=== PATIENT | male | born 1995 | race Caucasian/White ===

== ENCOUNTER 2019-08-03 09:35 | Emergency (ER) | payer OTHER ==
[2019-08-03 09:48] VITALS: BP 123/77; PULSE 89; TEMP 98.3; BMI 66.6
--- NOTE | 2019-08-03 10:34 | PDOC ---
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 (--friend translated) - History of Present Illness Pain Location: reports: lower extremity (R knee pain) Method of Injury: Yes: fall Past History - Travel Traveled outside of the country in the last 30 days: No Close contact w/someone who was outside of country & ill: No - Past Medical History Allergies/Adverse Reactions: Allergies Allergy/AdvReac Type Severity Reaction Status Date / Time No Known Allergies Allergy Verified 08/03/19 09:45 Home Medications: Ambulatory Orders NK [No Known Home Medication] 08/03/19 COPD: No - Immunization History Immunization Up to Date: No - Psycho Social/Smoking Cessation Hx Smoking History: Current every day smoker Have you smoked in the past 12 months: Yes Number of Cigarettes Smoked Daily: 1 Information on smoking cessation initiated: Yes Hx Alcohol Use: Yes Drug/Substance Use Hx: No Review of Systems - Review of Systems Constitutional: No: Chills, Fever Musculoskeletal: Yes: Joint Pain (R knee ), Joint Swelling. No: Back Pain Neurological: No: Headache, Weakness, Dizziness *Physical Exam - Vital Signs Last Vital Signs Temp Pulse Resp BP Pulse Ox 98.3 F 89 18 123/77 100 08/03/19 09:35 08/03/19 09:35 08/03/19 09:35 08/03/19 09:35 08/03/19 09:35 - Physical Exam General Appearance: Yes: Nourished Respiratory/Chest: positive: Normal Breath Sounds Cardiovascular: positive: Regular Rhythm, Regular Rate, S1, S2 Extremity: positive: Tender (R knee pain and swelling), Swelling (R knee) Neurologic: positive: marble finisher II-XII NML intact, Fully Oriented, Alert, Normal Mood/ Affect, Normal Response, Motor Strength 5/5 ED Treatment Course - RADIOLOGY Radiology Studies Ordered: Category Date Time Status KNEE 3 POS-LEFT [RAD] Stat Radiology 08/03/19 09:54 Completed Medical Decision Making - Medical Decision Making 08/03/19 10:32 23 years old male presents with right knee pain after falling on his knee an hour ago while playing soccer Patient denies any LOC or head trauma. He is on it he is unable to bear weight on the knee. There is some obvious swelling noted anterior knee, patient is unable to flex knee due to pain, his distal pulses intact. He is currently sitting on a wheelchair right now. X-rays revealing the patella fracture, Ortho page, disposition pending 08/03/19 10:[address] Newman who recommends patient can be placed on the knee immobilizer crutches provided He can follow-up in his office at 8 AM tomorrow Offered pain control patient is refusing 08/03/19 11:45 Discharge - Discharge Information Problems reviewed: Yes Clinical Impression/Diagnosis: Patella fracture Qualifiers: Encounter type: initial encounter Fracture type: closed Fracture morphology: other fracture Laterality: right Qualified Code(s): S82.091A - Other fracture of right patella, initial encounter for closed fracture Condition: Stable Disposition: HOME - Admission No - Additional Discharge Information Prescription Drug Monitoring Program (I-STOP) results: I-STOP not reviewed - Follow up/Referral Referrals: Kun Newman MD [Staff Physician] - (You have a appoinment tomorrow at 8am The address is [address] [place] [address] ) - Patient Discharge Instructions Patient Printed Discharge Instructions: Patella Fracture - Post Discharge Activity
== END 2019-08-03 11:58 | disposition home or self-care (01) ==
LOC: JER 09:35
PROC: 2W3QXYZ Immobilization of Right Lower Leg using Other Device (ICD-10-PCS; principal; 2019-08-03)
DX: S82.091A Other fracture of right patella, initial encounter for closed fracture (principal); W18.39XA Other fall on same level, initial encounter; Y93.66 Activity, soccer; Y92.322 Soccer field as the place of occurrence of the external cause; Y99.8 Other external cause status
CPT/HCPCS: 73562-TC-LT-FY; 99281-25

== ENCOUNTER 2019-08-13 06:13 | Day surgery (SDC) | payer OTHER ==
[2019-08-11 11:47] VITALS: BMI 31.8
[2019-08-13] MEDS ORDERED: ceFAZolin SODIUM 1 GM VIAL ONE (07:04)
[2019-08-13] MEDS ORDERED: SODIUM CHLORIDE 0.9% P/F 10 ML VIAL IJ ONE ×2 (07:04→07:21)
[2019-08-13] MEDS ORDERED: MIDAZOLAM HCL 2 MG/2 ML SINGLE DOSE VIAL ONE ×2 (07:04→07:20)
[2019-08-13] MEDS ORDERED: PROPOFOL 20 ML ONE ×2 (07:04)
[2019-08-13] MEDS ORDERED: DEXAMETHASONE SOD PHOSPHATE 4 MG/1 ML VIAL ONE (07:04)
[2019-08-13] MEDS ORDERED: DEXAMETHASONE SOD PHOSPHATE/PF 10 MG/ML SDV ONE (07:20)
[2019-08-13] MEDS ORDERED: BUPIVACAINE HCL/PF 0.5% (5 MG/ML) 30 ML VIAL IJ ONE (07:21)
--- NOTE | 2019-08-13 08:03 | OP ---
Operative Note - Note: Operative Date: 08/13/19 Pre-Operative Diagnosis: Left patellar fracture Operation: Left patella ORIF Post-Operative Diagnosis: Same as Pre-op Surgeon: Kun Newman Supervisor Sunglasses: Farzana Rangel Anesthesia: General Operative Report Dictated: Yes
[2019-08-13] MEDS ORDERED: KETOROLAC TROMETHAMINE 30 MG/1 ML VIAL ONE (08:40)
[2019-08-13] MEDS ORDERED: ONDANSETRON 4 MG/2 ML VIAL ONE ×2 (08:40→10:53)
[2019-08-13] MEDS ORDERED: ACETAMINOPHEN INJECTION 100 ML IVPB ONE (10:10)
[2019-08-13] MEDS ORDERED: ONDANSETRON 4 MG/2 ML VIAL IVPUSH PRN (10:13)
[2019-08-13] MEDS ORDERED: oxyCODONE HCL 5 MG TABLET PO PRN ×2 (10:13)
[2019-08-13] MEDS ORDERED: LACTATED RINGERS SOLUTION 1,000 ML IV SCH (10:15)
[2019-08-13] MEDS ORDERED: HYDROmorphone HCl 2 MG/ML VIAL IVPUSH PRN (10:15)
[2019-08-13] MEDS ORDERED: HYDROmorphone HCL 0.5 MG/0.5 ML SYRINGE ONE ×4 (10:16→11:12)
[2019-08-13] MEDS: HYDROmorphone HCl 2 MG/ML VIAL IVPUSH PRN ×3 (10:20→11:05)
--- NOTE | 2019-08-13 10:41 | OP ---
DATE OF OPERATION: 08/13/2019 PREOPERATIVE DIAGNOSIS: Left patellar fracture. POSTOPERATIVE DIAGNOSIS: Left patellar fracture. PROCEDURE: Left patella open reduction internal fixation. SURGEON: Kun Newman MD BOARDING MOTHER: VI Lopez ANESTHESIA: Regional plus general. POSTOPERATIVE CONDITION: Stable. COMPLICATIONS: None. IMPLANTS: Arthrex cannulated screws 4-0 x 2. INDICATIONS: This is a pleasant 23-year-old gentleman who suffering a fall playing soccer. He was found to have a displaced patellar fracture. Treatment options were discussed including nonoperative care with prolonged loss of sensory function versus operative care, which was highly recommended. This would involve fixing the bone back in place to restore the function of the patella and extensor mechanism. I reviewed surgical risks including bleeding, infection, neurovascular injury, need for further surgery, postoperative pain and stiffness, nonunion, malunion, hardware failure, or cutout. We discussed medical risks such as heart attack, stroke, DVT, PE, and . I addressed the use of perioperative antibiotic and DVT prophylaxis. I reviewed the patient's questions and concerns. He voiced understanding and elected to proceed. DESCRIPTION OF PROCEDURE: The patient was brought to the operating room where general anesthetic was administered. He had previously been given a block in the preoperative holding area. He was then prepped and draped in the usual sterile fashion. A preoperative dose of antibiotics was given, and the usual time-out procedure was performed. The left knee was then incised in the midline along the fracture site. This was carried down through skin and subcutaneous tissue. Electrocautery was used to maintain hemostasis. Due to some oozing from the bone and surrounding tissues, the tourniquet was now inflated to 260 mmHg after exsanguination. The fracture was now identified. The fracture edges were curetted to remove any soft callus. A pointed reduction clamp was now applied across the fracture. Fracture reduction was assessed both visually and postoperatively, and both were satisfactory. Two K-wires were now placed in parallel fashion along the length of the patella. K-wire placement was verified fluoroscopically. These were then overdrilled in the near cortex, measured, and two 40-mm screws were inserted. The screw placement was again verified fluoroscopically and was satisfactory. The clamp and the K-wires were now removed. A FiberTape suture was then placed in figure of eight fashion and then tied to secure a tension band-type construct. The wound was now copiously irrigated. The retinaculum had been torn extensively both medially and laterally, and this was repaired using No. 1 Vicryl. The fascia over the patella was repaired using 0 Vicryl suture. The skin was closed using deep 0 Vicryl followed by subcutaneous 2-0 Vicryl followed by 3-0 nylon on the skin. Sterile dressings were placed. The patient was placed into a knee immobilizer and was transferred to recovery room in stable condition. Brendan [id number]
[2019-08-13] MEDS ORDERED: ACETAMINOPHEN 1000 MG/100 ML VIAL (NON FORMULARY) IVPB ONE (11:00)
[2019-08-13] MEDS ORDERED: oxyCODONE HCL 5 MG TABLET ONE (11:48)
[2019-08-13 12:01] VITALS: TEMP 98.6
[2019-08-13 14:50] VITALS: PULSE 106
[2019-08-13 14:54] VITALS: BP 108/69
== END 2019-08-13 14:10 | disposition home or self-care (01) ==
LOC: FASU 06:13
PROVIDERS: ATTEND Orthopaedic Surgery Sports Medicine
PROC: 0QSF04Z Reposition Left Patella with Internal Fixation Device, Open Approach (ICD-10-PCS; principal; 2019-08-13 08:00)
DX: S82.002A Unspecified fracture of left patella, initial encounter for closed fracture (principal); X58.XXXA Exposure to other specified factors, initial encounter; Y93.9 Activity, unspecified; Y92.9 Unspecified place or not applicable; Y99.9 Unspecified external cause status
CPT/HCPCS: 73560-TC-LT-FY; 76000-TC-FY; 94760; J0131